=== PATIENT | female | born 1975 | race Two or more races ===

== ENCOUNTER 2019-11-05 09:19 | Emergency (ER) | payer MEDICAID ==
[~2019-11-05] VITALS: Ht 154.9 cm; Wt 61.2 kg
[~2019-11-05 09:19] MED LIST: DICYCLOMINE HCL10 MG ORAL; LOMOTIL TABLET1 EAC1 PO; TYLENOL325 MG ORAL
[2019-11-05 09:22] VITALS: BP 102/66
[2019-11-05] MEDS ORDERED: Acetaminophen 500mg (ES) tab ORAL ONE (09:30)
--- NOTE | 2019-11-05 09:32 | NUR ---
ED Nurse Note: Pt from home walked in due to Nausea, vomiting and diarrhea with generalized bodyaches and coughing x 2 days. Afebrile in triage 98.6 F. AAO x,4 ambulatory with non labored breathing. Skin is warm and dry. Lungs clear when auscultated.
[2019-11-05] MEDS ORDERED: IBUPROFEN600 MG ORAL (09:40)
--- NOTE | 2019-11-05 09:41 | Emergency Room Report ---
History of Present Illness General Chief Complaint: General Complaint Source: Patient Present Illness HPI 44-year-old female presents with fever, cough, congestion, body aches x2 days no aggravating leaving factors severity is moderate, constant, patient denies any dysuria, no abdominal pain patient presents for evaluation Allergies: Coded Allergies: No Known Allergies (Unverified , 08/22/19) Patient History Past Medical History: see triage record Last Menstrual Period: hyterectomy in 2010 Reviewed Nursing Documentation: PMH: Agreed; PSxH: Agreed Nursing Documentation-PMH Past Medical History: No History, Except For Review of Systems All Other Systems: negative except mentioned in HPI Physical Exam Vital Signs Date Time Temp Pulse Resp B/P (MAP) Pulse Ox O2 Delivery O2 Flow Rate FiO2 11/05/19 09:22 98.6 108 17 102/66 (78) 95 Room Air Sp02 EP Interpretation: reviewed, normal General Appearance: well appearing, no apparent distress, alert Head: normocephalic, atraumatic Eyes: bilateral eye PERRL, bilateral eye EOMI ENT: uvula midline, moist mucus membranes, nasal congestion Neck: supple, thyroid normal, supple/symm/no masses Respiratory: lungs clear, no respiratory distress, no retraction, no accessory muscle use Cardiovascular #1: normal peripheral pulses, regular rate, rhythm, no edema, no gallop, no murmur Gastrointestinal: non tender, soft, no guarding, no rebound Musculoskeletal: normal inspection Neurologic: alert, oriented x3 Psychiatric: mood/affect normal Skin: no rash, warm/dry Medical Decision Making Diagnostic Impression: Primary Impression: Viral syndrome ER Course 44-year-old female presents most likely with viral syndrome differential diagnosis includes upper respiratory infection, pneumonia, influenza Disposition home with return precautions, supportive care Last Vital Signs Date Time Temp Pulse Resp B/P (MAP) Pulse Ox O2 Delivery O2 Flow Rate FiO2 11/05/19 09:22 98.6 108 17 102/66 (78) 95 Room Air Disposition: HOME, SELF-CARE Condition: Stable Scripts Ibuprofen* (MOTRIN*) 600 Mg Tablet 600 MG ORAL Q8H PRN for For Pain, #30 TAB 0 Refills Prov: Mason Menard MD 11/05/19 Referrals: Juwan Kraft MD (PCP) Departure Forms: Return to Work Return to Work Date: Nov 09, 2019 Patient Instructions: Upper Respiratory Infection, Adult, [id number] Additional Instructions: The patient was provided with discharge instructions, notified to follow-up with a primary care doctor and or specialist in the next 24-48 hours, and to return to the ED if they have worsening of their symptoms. Please note that this report is being documented using DRAGON technology. This can lead to erroneous entry secondary to incorrect interpretation by the dictating instrument. Mason Menard MD Nov 05, 2019 09:41
--- NOTE | 2019-11-05 09:51 | NUR ---
ED Nurse Note: Collected Flu swab and urine then sent.
--- NOTE | 2019-11-05 11:16 | NUR ---
ER DISCHARGE NOTE: Patient is cleared to be discharged per ERMD, pt is aox4, on room air, with stable vital signs. pt was given dc and prescription instructions, pt was able to verbalize understanding, pt id band removed. pt is able to ambulate with steady gait. pt took all belongings. pt ambulated with
[2019-11-05 11:17] VITALS: BP 107/69
== END 2019-11-05 11:16 | disposition home or self-care (01) ==
LOC: EMR 09:30
DX: B34.9 Viral infection, unspecified (principal); Z90.710 Acquired absence of both cervix and uterus
CPT/HCPCS: 81025; 86710; Z7502; 99282